=== PATIENT | male | born 1955 | race Caucasian/White ===

== ENCOUNTER → 2016-09-28 | Outpatient (CLI) | payer OTHER ==
--- NOTE | 2016-09-28 13:03 | DIAGNOSTIC IMAGING REPORT ---
CHEST 2 VIEWS ROUTINE CLINICAL HISTORY: R05 [id number] SOB (shortness of breath)R06.2 Wheezing dyspnea COMPARISON STUDY: No previous studies for comparison. FINDINGS: The bones soft tissues and hemidiaphragms are normal. The cardiomediastinal silhouette is normal. The lungs are clear. The pulmonary vasculature is normal. IMPRESSION: Negative chest. The above report was generated using voice recognition software. It may contain grammatical, syntax or spelling errors. Electronically signed by: Ernie Philippe M.D. 09/28/2016 1:01 PM Dictated Date/Time: 09/28/2016 1:01 PM
--- NOTE | 2016-09-28 13:04 | DIAGNOSTIC IMAGING REPORT ---
SINUSES MIN 3 VIEWS ROUTINE CLINICAL HISTORY: R05 [id number] SOB dyspnea COMPARISON STUDY: None FINDINGS: Opacified left maxillary sinus. Possible hypertrophic change left nasal turbinates versus expansion left maxillary sinus wall medially. All remaining sinuses are generally clear. Orbital margins are intact. IMPRESSION: 1. Opacified left maxillary sinus with possible expansion of the medial maxillary sinus wall. CT study of the sinuses suggested as follow-up. The above report was generated using voice recognition software. It may contain grammatical, syntax or spelling errors. Electronically signed by: Ernie Philippe M.D. 09/28/2016 1:02 PM Dictated Date/Time: 09/28/2016 1:01 PM
[2016-09-28 13:33] LABS: ALT/SGPT 36 U/L (12-78); BLOOD UREA NITROGEN 14 mg/dl (7-18); BUN/CREATININE RATIO 13.5 (10-20); CALCIUM 8.7 mg/dl (8.5-10.1); CARBON DIOXIDE 25 mmol/L (21-32); CHLORIDE 109 mmol/L (98-107); GLUCOSE 105 mg/dl (70-99); SODIUM 140 mmol/L (136-145)
[2016-09-28 13:36] LABS: ALB/GLOB RATIO 1.1 (0.9-2); ALKALINE PHOSPHATASE 67 U/L (45-117); AST/SGOT 23 U/L (15-37); BASO % 1.3 %; COMPLETE YES; EOS % 18.6 %; HEMATOCRIT 45.4 % (42-52); IG% 0.3 %; LYMPH % 26.5 %; LYMPH ABS # 2.03 K/uL (1.2-3.4); MEAN CELL VOLUME 89.9 fL (80-100); MEAN CORPUSCULAR HEMOGLOBIN 31.1 pg (25-34); MEAN CORPUSCULAR HGB CONC 34.6 g/dl (32-36); MEAN PLATELET VOLUME 9.9 fL (7.4-10.4); MONO % 7.2 %; NEUT % 46.1 %; PLATELET COUNT 300 K/uL (130-400); RED BLOOD COUNT 5.05 M/uL (4.7-6.1); WHITE BLOOD COUNT 7.67 K/uL (4.8-10.8)
[2016-09-28 14:38] LABS: LYME DISEASE AB IGG NEG (NEG); LYME DISEASE AB IGM NEG (NEG)
[2016-09-30 18:43] LABS: BORDETELLA PERTUSSIS PT IGA 3 IU/mL
== END | disposition home or self-care (01) ==
LOC: C.RAD1850 12:14
PROVIDERS: ATTEND Physician Assistant
DX: R06.2 Wheezing (principal); R05 Cough; R06.02 Shortness of breath